=== PATIENT | male | born 2005 | race Caucasian/White ===

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

== ENCOUNTER 2024-05-08 22:33 | Outpatient (REF) | payer BC, SELFPAY | END 2024-05-08 22:34 | disposition home or self-care (01) | LOC: NCHCN 22:33 | PROVIDERS: Visit Provider Nurse Practitioner Family | DX: J02.9 Acute pharyngitis, unspecified (principal) | CPT/HCPCS: 87070 ==

== ENCOUNTER 2024-08-09 13:10 | Outpatient (REF) | payer BC, SELFPAY ==
[2024-08-09 19:57] LABS: ALT 18 U/L (16-63); AST 20 U/L (15-37); Albumin 4.2 g/dL (3.4-5.0); Alkaline Phosphatase 70 U/L (46-116); Anion Gap 7.5 mmol/L (3-11); BUN 15 mg/dL (7-18); Bilirubin, Total 0.74 mg/dL (0.2-1.0); CO2 28.5 mmol/L (21.0-32.0); CREATININE 1.1 mg/dL (0.70-1.30); Calcium 9.3 mg/dL (8.5-10.1); Calculated LDL 75 mg/dL (<100); Chloride 106 mmol/L (98-107); Cholesterol 138 mg/dL (<200); Estimated GFR 97.95 (mL/min/1.73m2); Glucose 83 mg/dL (74-106); HDL Cholesterol 49 mg/dL (40-60); Potassium 4.6 mmol/L (3.5-5.1); Sodium 142 mmol/L (136-145); Total Protein 7.5 g/dL (6.4-8.2); Triglyceride 74 mg/dL (<150)
[2024-08-12 10:26] LABS: HIV-1/2 Ag & Ab Screen Negative (Negative)
[2024-08-12 10:39] LABS: Hepatitis C Ab w Rflx HCV PCR Negative (Negative)
== END 2024-08-09 13:11 | disposition home or self-care (01) ==
LOC: NCHCN 13:10
PROVIDERS: PCP Physician Assistant; Visit Provider Physician Assistant
DX: Z11.59 Encounter for screening for other viral diseases (principal); Z13.220 Encounter for screening for lipoid disorders; Z11.4 Encounter for screening for human immunodeficiency virus [HIV]
CPT/HCPCS: 80053; 80061; 86803; 87389